=== PATIENT | female | born 1950 | race Caucasian/White ===

== ENCOUNTER 2017-12-09 15:23 | Inpatient (IN) | payer OTHER ==
[~2017-12-09] VITALS: Ht 165.1 cm; Wt 81.6 kg
[2017-12-09 15:29] VITALS: BP 140/78
--- NOTE | 2017-12-09 15:31 | NUR ---
PT AMBULATED TO ED BED 11, URINE OBTAINED
--- NOTE | 2017-12-09 15:35 | NUR ---
PT C/O ABDOMINAL PAIN IN RUQ X 2 WEEKS. NO OTHER COMPLAINTS, DENIES NVD AND CP/SOB. PAIN IS 10/10 SHARP. . DENIES N/V/D; SKIN IS PINK/WARM/DRY; AAOX4 WITH EVEN AND STEADY GAIT; LUNGS CLEAR BL; HR EVEN AND REGULAR; PT DENIES ANY FEVER, CP, SOB, OR COUGH AT THIS TIME; PATIENT STATES PAIN OF 10/10 AT THIS TIME; VSS; PATIENT POSITIONED FOR COMFORT; HOB ELEVATED; BEDRAILS UP X2; BED DOWN. ER MD MADE AWARE OF PT STATUS.
[2017-12-09] MEDS ORDERED: NACL 0.9% 1,000 ML IV SCH (15:42)
[2017-12-09] MEDS ORDERED: ONDANSETRON 4 MG/2 ML VIAL IVP ONE (15:45)
[2017-12-09] MEDS ORDERED: MORPHINE SULFATE 4 MG/ML SYR IVP ONE (15:45)
--- NOTE | 2017-12-09 16:12 | NUR ---
US IN PROCESS
[2017-12-09 16:56] LABS: BASOPHILS # (AUTO) 0.1 K/uL (0.00-0.22); BASOPHILS % (AUTO) 0.8 % (0.0-2.0); EOSINOPHILS # (AUTO) 0.2 K/uL (0-0.4); EOSINOPHILS % (AUTO) 1.8 % (0.0-4.0); HEMATOCRIT 40.1 % (36-48); LYMPHOCYTES # (AUTO) 2.8 K/uL (2.5-16.5); LYMPHOCYTES % (AUTO) 25.2 % (20.5-51.1); MEAN CORPUSCULAR HEMOGLOBIN 28 pg (27-31); MEAN CORPUSCULAR HGB CONC 33 g/dL (33-37); MEAN CORPUSCULAR VOLUME 84.5 fL (80-94); MONOCYTES # (AUTO) 0.8 K/uL (0.8-1.0); MONOCYTES % (AUTO) 6.8 % (1.7-9.3); NEUTROPHILS # (AUTO) 7.3 K/uL (1.8-7.7); NEUTROPHILS % (AUTO) 65.4 % (42.2-75.2); PLATELET COUNT (AUTO) 323 K/uL (140-450); RED BLOOD CELL COUNT(AUTO) 4.74 MIL/uL (4.20-5.40); RED CELL DISTRIBUTION WIDTH 14.4 % (11.6-13.7); WHITE BLOOD COUNT (AUTO) 11.2 K/uL (4.8-10.8)
[2017-12-09 17:10] LABS: CARBON DIOXIDE 28.1 mmol/L (21-32); CREATININE 0.6 mg/dL (0.6-1.3); POTASSIUM 4.1 mmol/L (3.5-5.1)
[2017-12-09 17:15] LABS: ALBUMIN 3.9 g/dL (3.4-5.0); TOTAL BILIRUBIN 0.6 mg/dL (0.0-1.0)
[2017-12-09] MEDS ORDERED: ONDANSETRON 4 MG/2 ML VIAL IM/IVP PRN (18:45)
[2017-12-09] MEDS ORDERED: DOCUSATE SODIUM 100 MG GELCAP PO PRN (18:45)
[2017-12-09] MEDS ORDERED: ACETAMINOPHEN 325 MG TAB PO PRN (18:45)
[2017-12-09] MEDS ORDERED: KETOROLAC 15 MG/ML VIAL IVP PRN (18:45)
[2017-12-09] MEDS ORDERED: TRAM50TA1 PO (19:11)
[2017-12-09] MEDS ORDERED: NAPR-54 PO (19:11)
[2017-12-09 19:23] LABS: APPEARANCE,URINE CLEAR (CLEAR); BILIRUBIN,URINE NEGATIVE (NEGATIVE); BLOOD, URINE NEGATIVE (NEGATIVE); COLOR,URINE YELLOW (YELLOW); LEUKOCYTE ESTERASE ,URINE TRACE (NEGATIVE); NITRITE, URINE NEGATIVE (NEGATIVE); UGLUCOSE NEGATIVE (NEGATIVE)
[2017-12-09 19:30] LABS: BARBITURATE, URINE NEG. ng/ml (NEG <=200); BENZODIAZEPINE, URINE NEG. ng/mL (NEG <=200); CANNABINOID, URINE NEG. ng/mL (NEG <=50); COCAINE, URINE NEG. ng/mL (NEG <=300); OPIATE, URINE NEG. ng/mL (NEG <=2000); PHENCYCLIDINE SCREEN,URINE NEG. ng/mL (NEG <=25)
[2017-12-09 19:34] LABS: RBC,URINE 0-5 (RARE) /HPF (0-5); WBC,URINE 0-5 (RARE) /HPF (0-5)
--- NOTE | 2017-12-09 19:45 | NUR ---
Patient will be admitted to care of DR PURDY. Admited to M/S. Will go to room 120B. Belongings list completed. Report to VITALIY KING .
--- NOTE | 2017-12-09 19:50 | NUR ---
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
[2017-12-09 20:13] LABS: PROTHROMBIN TIME 10.2 secs (10.8-13.4)
[2017-12-09] MEDS: MORPHINE SULFATE 2 MG/ML SYR IVP PRN (20:17)
[2017-12-09] MEDS: DEXT 5% /NACL 0.9% 1,000 ML IV SCH (20:23)
[2017-12-09 20:30] VITALS: BP 165/51
[2017-12-09 20:30] LABS: MAGNESIUM 1.9 mg/dL (1.8-2.4); PHOSPHORUS 3.6 mg/dL (2.5-4.9); THYROID STIMULATING HORMONE 1.35 uIU/mL (0.34-3.74)
--- NOTE | 2017-12-09 20:30 | NUR ---
MEDICATED PRN FOR PAIN WITH MORPHINE, IVF OF D5NS AT 120ML/H STARTED, ALL NEEDS ATTENDED.
[2017-12-09] MEDS ORDERED: cefTRIAXone 1,000 MG VIAL ONE (22:28)
[2017-12-10] VITALS: BP 104/50
--- NOTE | 2017-12-10 | NUR ---
PT SLEEPING, EASILY AROUSABLE, VITAL SIGNS STABLE, DENIES PAIN, IVF INFUSING WELL, MAINTAINED ON NPO, CONTINUE TO MONITOR CLOSELY.
[2017-12-10 04:30] VITALS: BP 125/54
[2017-12-10] MEDS: MORPHINE SULFATE 2 MG/ML SYR IVP PRN ×2 (04:48→19:44)
--- NOTE | 2017-12-10 04:50 | NUR ---
PT AMBULATED TO BR WITH STANDBY ASSIST AND VOIDED FREELY, PT WENT BACK TO BED, COMPLAINING OF PAIN, VITAL SIGNS STABLE, MEDICATED PRN FOR PAIN.
[2017-12-10] MEDS: DEXT 5% /NACL 0.9% 1,000 ML IV SCH ×3 (04:58→22:40)
--- NOTE | 2017-12-10 05:00 | NUR ---
[employer] DIAPHRAGM BUILDER XIANG # [id number] UTILIZE TO OBTAINED CONSENT FOR LAP CHOLECYSTECTOMY AND BLOOD TRANSFUSION, PT WILL WAIT FOR DR CONTE TO EXPLAIN THE PROCEDURE LATER TODAY BEFORE SHE SIGNS THE SX CONSENT, PT SIGNED CONSENT FOR BLOOD TRANSFUSION, WILL ENDORSE.
--- NOTE | 2017-12-10 06:10 | NUR ---
PT BACK FROM CT SCAN, IN STABLE CONDITION, RESUMED IVF, DENIES ANY PAIN, MAINTAINED ON NPO, MONITORED CLOSELY.
[2017-12-10 06:33] LABS: BASOPHILS # (AUTO) 0.1 K/uL (0.00-0.22); BASOPHILS % (AUTO) 0.7 % (0.0-2.0); EOSINOPHILS # (AUTO) 0.3 K/uL (0-0.4); EOSINOPHILS % (AUTO) 3.8 % (0.0-4.0); HEMATOCRIT 38.9 % (36-48); HEMOGLOBIN 12.8 g/dL (12.0-16.0); LYMPHOCYTES # (AUTO) 2.5 K/uL (2.5-16.5); LYMPHOCYTES % (AUTO) 30.3 % (20.5-51.1); MEAN CORPUSCULAR HEMOGLOBIN 28 pg (27-31); MEAN CORPUSCULAR HGB CONC 33 g/dL (33-37); MEAN CORPUSCULAR VOLUME 85.3 fL (80-94); MONOCYTES # (AUTO) 0.6 K/uL (0.8-1.0); MONOCYTES % (AUTO) 7.8 % (1.7-9.3); NEUTROPHILS # (AUTO) 4.6 K/uL (1.8-7.7); NEUTROPHILS % (AUTO) 57.4 % (42.2-75.2); PLATELET COUNT (AUTO) 320 K/uL (140-450); RED BLOOD CELL COUNT(AUTO) 4.56 MIL/uL (4.20-5.40); RED CELL DISTRIBUTION WIDTH 14.3 % (11.6-13.7); WHITE BLOOD COUNT (AUTO) 8.1 K/uL (4.8-10.8)
[2017-12-10 06:37] LABS: ANION GAP 9.6 (8-16); CARBON DIOXIDE 28.6 mmol/L (21-32); CREATININE 0.6 mg/dL (0.6-1.3); POTASSIUM 4.2 mmol/L (3.5-5.1)
[2017-12-10 06:47] LABS: CHOL/HDL RATIO 4.1 (1-4.5); MAGNESIUM 1.9 mg/dL (1.8-2.4); PHOSPHORUS 3.2 mg/dL (2.5-4.9)
--- NOTE | 2017-12-10 07:30 | NUR ---
PT AWAKE, NO DISTRESS NOTED, REPORT GIVEN TO RN SITAL FOR CONTINUITY OF CARE.
--- NOTE | 2017-12-10 07:31 | NUR ---
RECEIVED REPORT FROM NURSE . PT NPO FOR PROCEDURE TODAY. SLEEPING ON HER BED, NO SIGN OF DISTRESS. ALL SAFETY MEASURE IN PLACE. HAS IV ACCESS LF WRIST 22 G, SITE INTACT. WILL CONTINUE TO MONITOR PT.
[2017-12-10 08:00] VITALS: BP 131/54
--- NOTE | 2017-12-10 08:40 | NUR ---
PT AT THE BEDSIDE. EXPLAINED HIM THAT NEEDS SIGNATURE FOR CONSENT FORM TO PERFORM PROCEDURE ON PT. USED BLUE PHONE. ANGLE BENDER ID [id number], NAME PÉREZ. [facility] CALLED , STATES IF HYDA SCAN TEST CAN BE DONE IN AM. INFORMED HER THAT PT WILL GO FOR SX 1000. RESIDENT NOTIFIED, WILL HOLD HYDA SCAN FOR PT. WILL CONTINUE TO MONITOR PT.
[2017-12-10] MEDS: LACTOBACILLUS RHAMNOSUS GG 1 EACH CAP PO SCH (09:00)
--- NOTE | 2017-12-10 10:01 | NUR ---
PT OFF THE UNIT, WENT TO OR FOR PROCEDURE. CONSENT FORM SIGNED BY PTS , PRIMARY LANGUAGE MOZAMBICAN. USED BLUE PHONE TO OBTAIN FOR SIGNING CONSENT FORM. DOG RACES MANAGER ID #[id number], NAME PÉREZ. PT STATES DOCTOR CAME IN MORNING AND EXPLAINED ABOUT THE PROCEDURE.
[2017-12-10] MEDS ORDERED: BUPIVACAINE-MPF/EPI 0.25% 30 ML VIAL INJ ONE (10:15)
[2017-12-10] MEDS ORDERED: ceFAZolin 1,000 MG VIAL ONE (10:23)
[2017-12-10] MEDS ORDERED: ROCURONIUM 50 MG/5 ML VIAL IV ONE (10:25)
[2017-12-10] MEDS ORDERED: DEXAMETHASONE 4 MG/ML VIAL IVP ONE (10:25)
[2017-12-10] MEDS ORDERED: PROPOFOL 200 MG/20 ML VIAL IV ONE (10:25)
[2017-12-10] MEDS ORDERED: DESFLURANE 240 ML BTL INH ONE (10:25)
[2017-12-10] MEDS ORDERED: ONDANSETRON 4 MG/2 ML VIAL IVP ONE (10:25)
[2017-12-10] MEDS ORDERED: HYDROmorphone PFS 2 MG/ML SYR ONE (10:31)
[2017-12-10] MEDS ORDERED: fentaNYL 0.05 MG/ML VIAL ONE (10:31)
[2017-12-10] MEDS ORDERED: ONDANSETRON 4 MG/2 ML VIAL IVP PRN (11:20)
[2017-12-10] MEDS ORDERED: HYDROmorphone 1 MG/ML AMP IVP PRN (11:20)
[2017-12-10] MEDS: HYDROmorphone PFS 2 MG/ML SYR ONE ×2 (11:57→12:07)
--- NOTE | 2017-12-10 13:00 | NUR ---
PT BACK FROM OR FROM PROCEDURE. REPORT GIVEN BY OR NURSE AT THE BEDSIDE. PT UNDER SEDATION EFFECT. DROWSY AND ON PAIN. PT RESTLESS FOR A WHILE, LATER SLEEPING AND [id number] CALM. FACIAL GRIMACING PRESENT, DUE TO PAIN PER OR NURSE. NOTED VS BP 119/56, O2 SAT 92% ON RA, HR 79, RR 14, T-97.2. WILL CONTINUE TO MONITOR PT FOR DESATURATION AND PAIN. VS TO BE NOTED EVERY 15 MIN FOR FIRST HOUR. ASSESSING VS CONTINUOUSLY. DAVID CONTINUE TO MONITOR PT.
--- NOTE | 2017-12-10 14:27 | NUR ---
CHECKED ON PT. STILL SLEEPING. AT THE BEDSIDE. PT ON OXYGEN @ 2LPM VIA NC. VS NORMAL O2 SAT 92% , RR 14, BP 128/53, HR 83. NO SIGN OF DISTRESS NOTED. WILL CONTINUE TO MONITOR PT.
--- NOTE | 2017-12-10 15:28 | NUR ---
PT SLEEPING , NO DISTRESS NOTED. PT ON NC @2LPM, VIA NC. O2 SAT 93%. WILL CONTINUE TO MONITOR PT.
[2017-12-10 16:00] VITALS: BP 118/56
--- NOTE | 2017-12-10 16:30 | NUR ---
PT AWAKE, ALERT. TALKING TO FAMILY MEMBER. VS NORMAL. O2 SAT 95% ON O2 SUPPLY, VIA NC @2LPM. NO SIGN OF DISTRESS NOTED. STATES PAIN 6/10, STATES TO HAVE TOLERABLE PAIN. WILL CONTINUE TO MONITOR PT.
--- NOTE | 2017-12-10 17:40 | NUR ---
CHECKED ON PT. FAMILY AT THE BEDSIDE. TALKING TO FAMILY. STATES TO HAVE TOLERABLE PAIN. PRACTICING IS . PT OFFERED WATER TO DRINK, TOLERATED WELL. NO SIGN OF DISTRESS NOTED WILL CONTINUE TO MONITOR PT.
--- NOTE | 2017-12-10 19:35 | NUR ---
ENDORSED PT TO PM NURSE AT BEDSIDE . PT IN STABLE CONDITION.
--- NOTE | 2017-12-10 19:36 | NUR ---
RECEIVED REPORT FROM AM SHIFT AT PT'S BEDSIDE. PT LYING COMFORTABLY IN BED, ALERT & VERBAL, CALL LIGHT WITHIN REACH. SPOUSE SITTING AT BEDSIDE.
--- NOTE | 2017-12-10 20:00 | NUR ---
REPORT GIVEN TO DISTRIBUTING CLERK.
--- NOTE | 2017-12-10 20:01 | NUR ---
RECD. RESTING IN BED, AWAKE, A/OX4, M[place]OCC[place] SPEAKING. IV OF D5NS AT 80 ML/HR INFUSING, LEFT HAND G22. S/P LAP CHOLECYSTECTOMY IN THE MORNING, INCISION IN THE ABDOMEN (4) COVERED WITH BAND AID DRESSING, ALL DRY AND INTACT. F/C PATENT DRAINING CLEAR YELLOW URINE. ON BILATERAL LEG SEQUENTIALS. PLAN OF CARE FOR THE SHIFT, ADVISED TO TURN ON THE SIDES AND REMINDED TO USE INCENTIVE SPIROMETER AND OTHER POST-OP TEACHINGS GIVEN THROUGH CR[employer] BUTCHER RICHARD, #[id number]. PATIENT VERBALIZED UNDERSTANDING. PAIN AT THIS TIME 08/31, WAS MEDICATED BY AM NURSE AT 1943. WILL CONTINUE TO MONITOR AND MEDICATE ORDERED BY . VS STABLE. Addendum: 12/10/17 at 2299 by Kamryn Rashid LVN CORRECTION: WAS MEDICATED AT 1943 BY PM VITALIY. Addendum: 12/10/17 at 2301 by Kamryn Rashid LVN CORRECTION: PT WAS MEDICATED BY SANDRA BURKS AT 4 .
[2017-12-10] MEDS: traMADol 50 MG TAB PO SCH (21:43)
[2017-12-10] MEDS: HYDROcodone/APAP 5/325 MG 1 TAB TAB PO PRN (21:44)
--- NOTE | 2017-12-10 21:45 | NUR ---
TOLERATING CLEAR LIQUID DIET. DUE PO MEDICATION GIVEN.
[2017-12-11] VITALS: BP 102/50
--- NOTE | 2017-12-11 | NUR ---
SLEEPING COMFORTABLY, SNORING IN BED.
[2017-12-11] MEDS: DEXT 5% /NACL 0.9% 1,000 ML IV SCH (01:58)
[2017-12-11 04:00] VITALS: BP 112/48
--- NOTE | 2017-12-11 05:00 | NUR ---
REMINDED TO USE INCENTIVE SPIROMETER, SEEMS RELUCTANT STATED MY ABDOMEN HURTS WHENEVER I BREATH OUT USING INCENTIVE SPIROMETER. ADVISED TO USE PILLOW OVER ABDOMEN TO LESSEN PAIN.
[2017-12-11] MEDS: HYDROcodone/APAP 5/325 MG 1 TAB TAB PO PRN ×3 (05:16→23:42)
--- NOTE | 2017-12-11 05:30 | NUR ---
LIU CATH TAKEN OUT, 1200 ML CLEAR YELLOW URINE OBTAINED. UNDERSTAND THAT SHE NEES TO GO TO BR TO VOID.
[2017-12-11 06:22] LABS: BASOPHILS % (AUTO) 0.2 % (0.0-2.0); EOSINOPHILS % (AUTO) 0.1 % (0.0-4.0); HEMATOCRIT 37.9 % (36-48); HEMOGLOBIN 12.5 g/dL (12.0-16.0); LYMPHOCYTES # (AUTO) 2.3 K/uL (2.5-16.5); LYMPHOCYTES % (AUTO) 15.6 % (20.5-51.1); MEAN CORPUSCULAR HEMOGLOBIN 28 pg (27-31); MEAN CORPUSCULAR HGB CONC 33 g/dL (33-37); MEAN CORPUSCULAR VOLUME 85.3 fL (80-94); MONOCYTES # (AUTO) 1.2 K/uL (0.8-1.0); MONOCYTES % (AUTO) 8.3 % (1.7-9.3); NEUTROPHILS % (AUTO) 75.8 % (42.2-75.2); PLATELET COUNT (AUTO) 328 K/uL (140-450); RED BLOOD CELL COUNT(AUTO) 4.44 MIL/uL (4.20-5.40); RED CELL DISTRIBUTION WIDTH 14.6 % (11.6-13.7); WHITE BLOOD COUNT (AUTO) 14.6 K/uL (4.8-10.8)
--- NOTE | 2017-12-11 06:41 | NUR ---
CONDITION REMAIN STABLE. WILL ENDORSE TO AM NURSE FOR CONTINUITY OF CARE.
[2017-12-11 06:47] LABS: ANION GAP 8.9 (8-16); CARBON DIOXIDE 29.3 mmol/L (21-32); CREATININE 0.6 mg/dL (0.6-1.3); POTASSIUM 4.2 mmol/L (3.5-5.1)
[2017-12-11 06:55] LABS: MAGNESIUM 1.9 mg/dL (1.8-2.4); PHOSPHORUS 3.4 mg/dL (2.5-4.9)
--- NOTE | 2017-12-11 07:15 | NUR ---
ENDORSED TO AM NURSE FOR CONTINUITY OF CARE.
--- NOTE | 2017-12-11 07:16 | NUR ---
RECEIVED REPORT FROM PM NURSE AT BEDSIDE. PT LYING ON HER BED. WANTED TO USE RESTROOM. CAN ASSISTED PT TO RESTROOM. LIU CATHETER DC BY PM NURSE. PT ABLE TO AMBULATE AND USE RESTROOM. NO BM YET PER PM NURSE.PT HAS IV ACCESS ON RT FA 20 G. PT STATES TO HAVE PAIN AT INCISION SITE , REPORTS TOLERABLE. INFORMED HER WILL MEDICATE FOR PAIN IF ITS DUE. VERBALIZED UNDERSTANDING. PT RESTING BY SIDE OF HER CHAIR. ON RA, O2 SAT 93%. NO SIGN OF DISTRESS NOTED. WILL CONTINUE TO MONITOR PT.
[2017-12-11 08:00] VITALS: BP 136/62
[2017-12-11] MEDS: LACTOBACILLUS RHAMNOSUS GG 1 EACH CAP PO SCH (08:38)
[2017-12-11] MEDS: MORPHINE SULFATE 2 MG/ML SYR IVP PRN ×3 (08:39→17:42)
[2017-12-11 11:37] LABS: ALBUMIN 3.1 g/dL (3.4-5.0); BILIRUBIN,DIRECT 0.1 mg/dL (0.0-0.3); TOTAL BILIRUBIN 0.5 mg/dL (0.0-1.0)
[2017-12-11 16:00] VITALS: BP 108/49
--- NOTE | 2017-12-11 19:20 | NUR ---
ENDORSED PT TO PM NURSE AT BEDSIDE FOR CONTINUITY OF CARE. PT IN STABLE CONDITION.
--- NOTE | 2017-12-11 19:21 | NUR ---
RECD. RESTING IN BED, AWAKE, A/OX4. RESPIRATION EVEN AND UNLABORED. IV SALINE LOCK AT THE LEFT HAND G22, PATENT AND INTACT. INCISION IN THE ABDOMEN (4) COVERED WITH BAND AID DRESSING, DRY AND INTACT. TOLERATING REGULAR DIET, PASSING GAS BUT NO BM YET. ON BILATERAL LEG SEQUENTIALS. PAIN IN THE ABDOMEN 04/02, STATED TOLERABLE. PLAN OF CARE DISCUSSED. VERBALIZED UNDERSTANDING. ENCOURAGED TO AMBULATE MORE.
[2017-12-11] MEDS: traMADol 50 MG TAB PO SCH (21:02)
--- NOTE | 2017-12-11 21:02 | NUR ---
DUE PO [id number] GIVEN.
[2017-12-12] VITALS: BP 114/51
--- NOTE | 2017-12-12 | NUR ---
SLEEPING COMFORTABLY IN BED.
--- NOTE | 2017-12-12 04:00 | NUR ---
STILL SLEEPING COMFORTABLY IN BED.
--- NOTE | 2017-12-12 07:00 | NUR ---
ABLE TO SLEEP WELL. CONDITION REMAIN STABLE. WILL ENDORSE TO AM NURSE FOR CONTINUITY OF CARE.
--- NOTE | 2017-12-12 07:15 | NUR ---
ENDORSED TO AM NURSE FOR CONTINUITY OF CARE.
--- NOTE | 2017-12-12 07:20 | NUR ---
RECEIVED PT FROM CENTRIFUGAL SPINNER NURSEHOLLAND, PT IS AWAKE AND LYING ON THE BED, WITH SIDE RAILS UP AND CALL LIGHT WITHIN REACH, PT HAS AN IV LINE ON THE LEFT HAND G. 20 WITH D5 NS AT 10ML/HR RUNNING AND INTACT. PT IS S/P LAP CHOLECYSTECTOMY WITH 4 SURGICAL INCISIONS NOTED ON THE ABDOMEN, DRESSING DRY AND INTACT. FALL AND SAFETY PRECAUTION ENFORCED. PT VERBALIZED A TOLERABLE PAIN OF 4/10. NO OTHER UNTOWARD SIGN AND SYMPTOMS NOTED. WILL CONTINUE TO MONITOR.
--- NOTE | 2017-12-12 07:45 | NUR ---
PT IS AWAKE AND VITAL SIGNS WAS TAKEN AND IS WITHIN NORMAL LIMITS AND STABLE. NO SIGN OF DISTRESS NOTED AND WILL CONTINUE TO MONITOR PT.
--- NOTE | 2017-12-12 07:50 | NUR ---
DR. PURDY AND THE RESIDENT DOCTORS CAME TO THE PT'S ROOM AND SPOKE TO THE PT REGARDING THE PLAN OF CARE AND PT VERBALIZED UNDERSTANDING. WILL MONITOR PT.
[2017-12-12 08:00] VITALS: BP 120/73
[2017-12-12] MEDS: LACTOBACILLUS RHAMNOSUS GG 1 EACH CAP PO SCH (08:21)
--- NOTE | 2017-12-12 08:30 | NUR ---
PT IS AWAKE AND HAVING HER BREAKFAST, WITH ON THE BEDSIDE, MEDICATIONS GIVEN AND PT TOLERATED IT. NO SIGN OF DISTRESS NOTED AND WILL CONTINUE TO MONITOR PT.
[2017-12-12 10:25] LABS: BASOPHILS # (AUTO) 0.1 K/uL (0.00-0.22); BASOPHILS % (AUTO) 0.7 % (0.0-2.0); EOSINOPHILS # (AUTO) 0.2 K/uL (0-0.4); EOSINOPHILS % (AUTO) 1.5 % (0.0-4.0); HEMATOCRIT 38.1 % (36-48); HEMOGLOBIN 12.5 g/dL (12.0-16.0); LYMPHOCYTES # (AUTO) 2.4 K/uL (2.5-16.5); LYMPHOCYTES % (AUTO) 19.1 % (20.5-51.1); MEAN CORPUSCULAR HEMOGLOBIN 28 pg (27-31); MEAN CORPUSCULAR HGB CONC 33 g/dL (33-37); MEAN CORPUSCULAR VOLUME 85.2 fL (80-94); MONOCYTES # (AUTO) 0.9 K/uL (0.8-1.0); MONOCYTES % (AUTO) 7.6 % (1.7-9.3); NEUTROPHILS # (AUTO) 8.9 K/uL (1.8-7.7); NEUTROPHILS % (AUTO) 71.1 % (42.2-75.2); PLATELET COUNT (AUTO) 310 K/uL (140-450); RED BLOOD CELL COUNT(AUTO) 4.48 MIL/uL (4.20-5.40); RED CELL DISTRIBUTION WIDTH 14.1 % (11.6-13.7); WHITE BLOOD COUNT (AUTO) 12.5 K/uL (4.8-10.8)
[2017-12-12 10:44] LABS: ANION GAP 7.7 (8-16); CREATININE 0.6 mg/dL (0.6-1.3); POTASSIUM 3.7 mmol/L (3.5-5.1)
[2017-12-12 10:50] LABS: MAGNESIUM 1.8 mg/dL (1.8-2.4)
[2017-12-12] MEDS: MORPHINE SULFATE 2 MG/ML SYR IVP PRN (11:50)
[2017-12-12 16:00] VITALS: BP 134/59
--- NOTE | 2017-12-12 19:35 | NUR ---
EDNORSED PT TO MORTGAGE COLLECTOR NURSEVANESSA FOR CONTINUITY OF CARE. PT IS STABLE AT THIS TIME.
--- NOTE | 2017-12-12 19:36 | NUR ---
REPORT RECEIVED FROM AM NURSE AT BEDSIDE. PT IN STABLE CONDITION. AAOX4. BOARD UPDATED. FAMILY AT BEDSIDE. IV SITE PATENT AND INTACT L HAND 20G RUNNING NS AT 10ML/HR OR TKO. SKIN WARM, DRY, AND NOT INTACT DUE TO SURGICAL INCISIONS FROM LAP GISELE. PT HAS INC WBC'S OF 14.6. BED LOCKED IN LOW POSITION. CALL LIN WITHIN REACH. SAFETY MEASURES IN PLACE.
[2017-12-12] MEDS: traMADol 50 MG TAB PO SCH (20:17)
--- NOTE | 2017-12-12 20:17 | NUR ---
ULTRAM PO GIVEN. HEPARIN GIVEN SUBQ LEFT LOWER ABDOMEN. PT TOLERATED WELL. WILL CONTINUE TO MONITOR.
--- NOTE | 2017-12-12 21:07 | NUR ---
LENORA ROBERTSON. PT TOLERATED WELL.
--- NOTE | 2017-12-12 23:20 | NUR ---
PT LAYING IN BED AWAKE AND ALERT. NO COMPLAINTS OF PAIN NOTED. RESPIRATIONS EVEN, UNLABORED, AND WNL. WILL CONTINUE TO MONITOR.
[2017-12-13] VITALS: BP 123/64
--- NOTE | 2017-12-13 01:50 | NUR ---
PT ATTEMPTING TO SLEEP, IS AROUSABLE. NO S/S OF DISTRESS NOTED. WILL CONTINUE TO MONITOR.
--- NOTE | 2017-12-13 04:35 | NUR ---
PT SLEEPING COMFORTABLY IN BED. RESPIRATIONS ARE EVEN, UNLABORED, AND WNL. NO COMPLAINTS OF PAIN.
--- NOTE | 2017-12-13 07:20 | NUR ---
REPORT GIVEN TO AM NURSE AT BEDSIDE. PT IN STABLE CONDITION.
--- NOTE | 2017-12-13 07:21 | NUR ---
RECEIVED BEDSIDE REPORT. NO DISTRESS NOTED AT THIS TIME. PATIENT IN STABLE CONDITION. CALL LIGHT WITHIN REACH WILL CONTINUE TO MONITOR.
[2017-12-13 07:29] LABS: BASOPHILS # (AUTO) 0.1 K/uL (0.00-0.22); BASOPHILS % (AUTO) 0.8 % (0.0-2.0); EOSINOPHILS # (AUTO) 0.3 K/uL (0-0.4); EOSINOPHILS % (AUTO) 3.2 % (0.0-4.0); HEMATOCRIT 38.3 % (36-48); HEMOGLOBIN 12.6 g/dL (12.0-16.0); LYMPHOCYTES # (AUTO) 3.2 K/uL (2.5-16.5); LYMPHOCYTES % (AUTO) 33.5 % (20.5-51.1); MEAN CORPUSCULAR HEMOGLOBIN 28 pg (27-31); MEAN CORPUSCULAR HGB CONC 33 g/dL (33-37); MEAN CORPUSCULAR VOLUME 84.5 fL (80-94); MONOCYTES # (AUTO) 0.8 K/uL (0.8-1.0); MONOCYTES % (AUTO) 8.9 % (1.7-9.3); NEUTROPHILS # (AUTO) 5.1 K/uL (1.8-7.7); NEUTROPHILS % (AUTO) 53.6 % (42.2-75.2); PLATELET COUNT (AUTO) 312 K/uL (140-450); RED BLOOD CELL COUNT(AUTO) 4.53 MIL/uL (4.20-5.40); RED CELL DISTRIBUTION WIDTH 14.3 % (11.6-13.7); WHITE BLOOD COUNT (AUTO) 9.5 K/uL (4.8-10.8)
[2017-12-13 07:47] LABS: ANION GAP 7.9 (8-16); CARBON DIOXIDE 31.9 mmol/L (21-32); CREATININE 0.5 mg/dL (0.6-1.3); POTASSIUM 3.8 mmol/L (3.5-5.1)
[2017-12-13 07:52] LABS: MAGNESIUM 1.9 mg/dL (1.8-2.4); PHOSPHORUS 4.1 mg/dL (2.5-4.9)
[2017-12-13 08:00] VITALS: BP 135/79
[2017-12-13] MEDS: LACTOBACILLUS RHAMNOSUS GG 1 EACH CAP PO SCH (09:19)
[2017-12-13] MEDS: HYDROcodone/APAP 5/325 MG 1 TAB TAB PO PRN (09:20)
[2017-12-13] MEDS ORDERED: ACET-9525 PO (09:28)
[2017-12-13] MEDS ORDERED: DOCU-299 PO (09:28)
--- NOTE | 2017-12-13 11:15 | NUR ---
Senior Applications Developer Notes: I faxed Patient's Clinical Information and MD order for Home Health for Wound Care to [facility] Provider [facility]. at
--- NOTE | 2017-12-13 12:30 | NUR ---
DISCHARGE PHOTOS ON 4 ABD SURGICAL WOUNDS TAKEN AND DOCUMENTED.
--- NOTE | 2017-12-13 13:00 | NUR ---
DISCHARGE INSTRUCTIONS AND PRESCRIPTIONS GIVEN TO PT WHICH VERBALIZED FULL UNDERSTANDING OF THE TEACHINGS AND INSTRUCTIONS GIVEN AND THE NEED TO FOLLOW UP WITH DR. CONTE ON DEC 25, 2017. ARM BANDS AND IV REMOVED, CANNULA TIP INTACT.
--- NOTE | 2017-12-13 13:15 | NUR ---
PT WHEELED OUT TO THE FRONT LOBBY IN STABLE CONDITION. NO SOB NOTED. NO COMPLAINTS MADE. D/C HOME WITH .
--- NOTE | 2017-12-13 13:56 | NUR ---
Events Traffic Controller Notes: I call [facility] Provider [facility]. At and I spoke to Shaye from admissions department. I confirmed with Shaye that Patient's Clinical information and MD order for Wound care was received. Per Shaye she did received Patient information and will be setting up her care and scheduled an appointment for a nurse to visit Patient as soon as possible (Maybe tomorrow) after her discharge from [facility]. Per Shaye she will be calling me back with confirmation of appointments with Patient today before 16:00.
--- NOTE | 2017-12-13 16:23 | NUR ---
Cad Drafter Notes: I called [facility] and spoke to Adelaide at to inform her that MD order for wound care was been cancel. These entry writer was made aware by Charge Nurse Norbert and requested to call [facility] to inform them. Adelaide Thanked me for the information and ended the call.
--- NOTE | 2017-12-16 15:32 | NUR ---
Sales Service Manager Note: I received a call from Lilian at [facility] , she stated they contact patient and patient declined home health services. Per Lilian, she will notify of this.
== END 2017-12-13 13:15 | disposition home or self-care (01) | DRG 418 ==
LOC: MED 15:23 → MTU 18:51
PROVIDERS: ADMIT General Practice; ATTEND General Practice
PROC: 0FT44ZZ Resection of Gallbladder, Percutaneous Endoscopic Approach (ICD-10-PCS; principal; 2017-12-10 10:00)
DX: K80.62 Calculus of gallbladder and bile duct with acute cholecystitis without obstruction (principal); N39.0 Urinary tract infection, site not specified; E86.0 Dehydration; E66.9 Obesity, unspecified; M19.90 Unspecified osteoarthritis, unspecified site; J45.909 Unspecified asthma, uncomplicated; K66.0 Peritoneal adhesions (postprocedural) (postinfection); K82.8 Other specified diseases of gallbladder; F43.9 Reaction to severe stress, unspecified; Z68.30 Body mass index [BMI] 30.0-30.9, adult; Z79.899 Other long term (current) drug therapy
CPT/HCPCS: 36415; 74150; 76705; 80048; 80053; 80076; 80305; 81001; 82374; 83036; 83605; 83690; 83735; 84100; 84134; 84443; 84484; 85025; 85610; 85730; 86886; 86900; 86901; 87040; 87081; 87086; 93005; 96361; 96374; 96375; 99285; C1887; J0690; J0696; J1100; J1170; J1644; J2270; J2405; J2704; J3010; J3490; J7030; J7042; J7060; Q0092